=== PATIENT | female | born 1940 | race Caucasian/White ===

== ENCOUNTER 2017-01-01 18:22 | Inpatient (IN) | payer OTHER ==
--- NOTE | 2017-01-01 20:06 | EDPHY ---
H & P Stated Complaint: Fall- laceration to forehead, right shoulder pain. - Personal History Current Tetanus Diphtheria and Acellular Pertussis (TDAP): Yes Tetanus Vaccine Date: < 10 years - Medical/Surgical History Hx Asthma: Yes Hx Chronic Respiratory Disease: No Hx Diabetes: No Hx Cardiac Disease: Yes Hx Renal Disease: No Hx Cirrhosis: No Hx Alcoholism: No Hx HIV/AIDS: No Hx Splenectomy or Spleen Trauma: No Other PMH: asthma, HTN, choly, hysterectomy, bilateral cataracts repaired - Social History Smoking Status: Former smoker HPI/ROS: Chief complaint: Fall with head and arm injury History of present illness: This is a 76-year-old female brought to emergency department after sustaining a fall at her assisted living home. Patient was walking with her walker when she stepped on a crack and fell forward striking her head and then right arm against the ground. No reported loss of consciousness, she states she remembers the entire event. She complains pain in front of her head where there is a cut. However her primary concern is pain in her right shoulder and arm. She denies injury to other parts of the body. Her tetanus is up-to-date. Review of systems: A 10 point review of systems was obtained and other than described above was negative (Milton Dolan) - Physical Exam Exam: General Appearance: Alert, conversing with me Eyes: PERRLA Respiratory: Lungs clear to auscultation bilaterally Cardiac: Regular rate and rhythm. Gastrointestinal: Bowel sounds normal. Abdomen soft, nondistended, nontender. Neurological: Alert. Strength and sensation intact and symmetrical. Skin: 2 cm laceration to the central forehead. Musculoskeletal: The head is nontender, no crepitus or bony deformity. There is no tenderness along the spine, no crepitus, bony deformity or step-off. There is tenderness to the right trapezius region. The right shoulder and humerus is tender and she does not want move these regions secondary to pain. Chest wall intact to palpation. The other extremities unremarkable. (Milton Dolan) Constitutional: Initial Vital Signs Temperature (C) 36.4 C 01/01/17 18:33 Heart Rate 65 01/01/17 18:33 Respiratory Rate 20 01/01/17 18:33 Blood Pressure 136/81 H 01/01/17 18:33 O2 Sat (%) 95 01/01/17 18:33 O2 Delivery Mode Room Air Allergies/Adverse Reactions: niacin Allergy (Verified 12/01/14 17:38) zolpidem tartrate [From Ambien] Allergy (Verified 12/01/14 17:38) Home Medications: Medication Instructions Recorded ALPRAZolam [Xanax 1 MG (*)] 1 mg PO DAILY 01/01/17 DULoxetine [Cymbalta 60 MG (*)] 60 mg PO DAILY 01/01/17 Gabapentin [Neurontin 300 MG (*)] 300 mg PO HS 01/01/17 Losartan Potassium [Cozaar 25 mg 25 mg PO DAILY 01/01/17 (*)] Metoprolol Tartrate [Lopressor 100 100 mg PO DAILY 01/01/17 mg (*)] Simvastatin [Zocor] 5 mg PO DAILY 01/01/17 Medical Decision Making - Diagnostics Imaging: Discussed imaging studies w/ order desk caller Radiologist, I viewed and interpreted images myself - Diagnostics Imaging Results: Imaging Impressions Cervical Spine CT 01/01/17 18:35 Impression: 1. No acute fracture or soft tissue swelling. 2. Multilevel degenerative disk and facet arthropathy. 3. If the patient has persistent pain or neurologic deficits, consider cervical spine MRI. Findings discussed with Emergency Department physician's web press operator assistant, Milotn Dolan, at 1952 hours 01/01/2017. Face CT 01/01/17 18:35 Impression: No acute facial fracture. Findings discussed with Emergency Department physician's web press operator assistant, Milton Dolan, at 1952 hours 01/01/2017. Head CT 01/01/17 18:35 Impression: 1. Small left frontal scalp hematoma. No acute skull or facial fracture. 2. No acute intracranial injury. 3. Atrophy and moderate white matter disease. 4. Dental caries in the left alveolar ridge. Findings discussed with Emergency Department, Milton Dolan, P.A., on December at 1952. Humerus X-Ray 01/01/17 18:35 Impression: Acute minimally-displaced three-part surgical neck fracture. Procedures: Procedure: Laceration repair. Verbal consent was obtained from the patient. The 2 cm laceration on the forehead was anesthetized in the usual fashion. The wound was irrigated, draped and explored to its base with a gloved finger. There were no deep structures involved. The wound was repaired with 5 0 Prolene, 3 simple interrupted sutures. The wound repair was simple. The procedure was performed by myself. ( Milton Dolan) ED Course/Re-evaluation: Patient seen in conjunction with my secondary supervising physician Dr. Serafin Martinez. Patient presents to the emergency department after what appears to be a mechanical trip and fall. Primary injury appears to be a surgical neck fracture of the right humerus. There is a laceration to her forehead that has been repaired. By history, physical and imaging studies no evidence of trauma to other parts of the body. She is admitted to the hospitalist service, Dr. Antonio Mancia for further evaluation and care. On-call orthopedics, Dr. Shayan Coleman will consult on the patient. The plan has been discussed with the patient who voiced understanding and agreement. (Milton Dolan) Differential Diagnosis: Included but not limited to soft tissue injury, bony injury, intracranial injury , spinal cord injury (Milton Dolan) Other Provider: PHYSICIAN DOCUMENTATION: The patient was evaluated and managed by the Physician Plastics Nurse and myself. I have reviewed the chart and agree with the findings and plan of care as documented. In addition, I examined the patient myself at 2009. Physical findings as follows: Forehead laceration. Nontender in the cervical spine. Is able to move and feel all [address] findings reviewed, cervical spine cleared clinically by myself at this time. Will require admission for right humerus fracture but inability to walk. Cleared otherwise from a trauma standpoint by myself. I am the secondary supervising physician. (Serafin Martinez) - Data Points Laboratory Results: Laboratory Results 01/01/17 18:30 01/01/17 18:30 01/01/17 01/01/17 18:30 18:30 WBC 7.43 10^3/uL 10^3/uL (3.80-9.50) RBC 4.92 10^6/uL 10^6/uL (4.18-5.33) Hgb 13.6 g/dL g/dL (12.6-16.3) Hct 42.7 % % (38.0-47.0) MCV 86.8 fL fL (81.5-99.8) MCH 27.6 pg L pg (27.9-34.1) MCHC 31.9 g/dL L g/dL (32.4-36.7) RDW 14.0 % % (11.5-15.2) Plt Count 307 10^3/uL 10^3/uL (150-400) MPV 11.6 fL fL (8.7-11.7) Neut % (Auto) 60.9 % % (39.3-74.2) Lymph % (Auto) 28.1 % % (15.0-45.0) [place] % (Auto) 10.6 % % (4.5-13.0) Eos % (Auto) 0.0 % L % (0.6-7.6) Baso % (Auto) 0.1 % L % (0.3-1.7) Nucleat RBC Rel Count 0.0 % % (0.0-0.2) Absolute Neuts (auto) 4.52 10^3/uL 10^3/uL (1.70-6.50) Absolute Lymphs (auto) 2.09 10^3/uL 10^3/uL (1.00-3.00) Absolute Monos (auto) 0.79 10^3/uL 10^3/uL (0.30-0.80) Absolute Eos (auto) 0.00 10^3/uL L 10^3/uL (0.03-0.40) Absolute Basos (auto) 0.01 10^3/uL L 10^3/uL (0.02-0.10) Absolute Nucleated RBC 0.00 10^3/uL 10^3/uL (0-0.01) Immature Gran % 0.3 % % (0.0-1.1) Immature Gran # 0.02 10^3/uL 10^3/uL (0.00-0.10) Sodium 137 mEq/L mEq/L (134-144) Potassium 4.8 mEq/L mEq/L (3.5-5.2) Chloride 104 mEq/L mEq/L (97-110) Carbon Dioxide 24 mEq/l mEq/l (22-31) Anion Gap 9 mEq/L mEq/L (8-16) BUN 15 mg/dL mg/dL (7-23) Creatinine 0.9 mg/dL mg/dL (0.6-1.0) Estimated GFR > 60 Glucose 96 mg/dL mg/dL (70-100) Calcium 10.2 mg/dL mg/dL (8.5-10.4) Medications Given: Sodium Chloride (Ns) 1,000 mls @ 50 mls/hr IV CONT MARCIAL Stop: 06/30/17 21:44 Last Admin: 01/01/17 22:52 Dose: 1,000 mls Discontinued Medications Fentanyl (Sublimaze) 50 mcg IVP ONCE ONE Stop: 01/01/17 20:51 Last Admin: 01/01/17 20:52 Dose: 50 mcg Departure - Departure Disposition: [facility] Acute Clinical Impression: Head injury Qualifiers: Encounter type: initial encounter Qualified Code(s): S09.90XA - Unspecified injury of head, initial encounter Humerus fracture Qualifiers: Encounter type: initial encounter Humerus Location: surgical neck Fracture type : closed Fracture morphology: 3-part Laterality: right Qualified Code(s): S42.231A - 3-part fracture of surgical neck of right humerus, initial encounter for closed fracture Forehead laceration Qualifiers: Encounter type: initial encounter Qualified Code(s): S01.81XA - Laceration without foreign body of other part of head, initial encounter Condition: Good
[2017-01-01 20:13] LABS: % IMMATURE GRANULYOCYTES 0.3 % (0.0-1.1); ABSOLUTE IMMATURE GRANULOCYTES 0.02 10^3/uL (0.00-0.10); ADD DIFF? NO; ADD MORPH? NO; ADD SCAN? NO; ATYPICAL LYMPHOCYTE FLAG 0 (0-99); FRAGMENT RBC FLAG 0 (0-99); HEMATOCRIT 42.7 % (38.0-47.0); HEMOGLOBIN 13.6 g/dL (12.6-16.3); LEFT SHIFT FLG 0 (0-99); LIPEMIA HEMOLYSIS FLAG 80 (0-99); MEAN CELL HEMOGLOBIN 27.6 pg (27.9-34.1); MEAN CELL HEMOGLOBIN CONCENTR. 31.9 g/dL (32.4-36.7); MEAN CELL VOLUME 86.8 fL (81.5-99.8); MEAN PLATELET VOLUME 11.6 fL (8.7-11.7); PLATELET CLUMPS FLAG 0 (0-99); PLATELET COUNT 307 10^3/uL (150-400); RED BLOOD CELL COUNT 4.92 10^6/uL (4.18-5.33)
[2017-01-01 20:22] LABS: ANION GAP 9 mEq/L (8-16); CALCIUM 10.2 mg/dL (8.5-10.4); CARBON DIOXIDE 24 mEq/l (22-31); CHLORIDE 104 mEq/L (97-110); CREATININE 0.9 mg/dL (0.6-1.0); GLOMERULAR FILTRATION RATE > 60; GLUCOSE 96 mg/dL (70-100); POTASSIUM 4.8 mEq/L (3.5-5.2); SODIUM 137 mEq/L (134-144)
[2017-01-01] MEDS ORDERED: fentaNYL 100 MCG/2 ML INJ IVP ONE (20:50)
[2017-01-01] MEDS ORDERED: fentaNYL 100 MCG/2 ML INJ ONE (20:50)
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
--- NOTE | 2017-01-01 21:42 | PDGENHP ---
History and Physical History and Physical: HISTORY AND PHYSICAL CC:Right shoulder pain after fall HISTORY: The history is obtained mostly directly from the patient. We have no previous records here from her medical care. Her memory is certainly poor and there may be inaccuracies in the history as detailed below due to her memory issues This patient comes into the emergency room by ambulance after being found on the ground today. She apparently had a fall and complains of primarily right shoulder pain as well as bleeding from her nose and a laceration to the forehead. She tells me that she went out the back entrance possibly of the place she lives but she does not recall where. She uses a walker and says that she was going downhill on a sidewalk when her walker started of go away from her too quickly and she could keep up and fell forward onto her face and shoulder. She did not lose consciousness. There was no lightheadedness, palpitations, chest pain, shortness of breath, fevers, nausea and she has not felt ill at all prior to this fall today. She has not fallen for quite some time she believes. She has been using a walker for about 6 months. She has no history of stroke. X-rays of her right shoulder have shown a fracture which will probably need surgical repair. ROS: A comprehensive 10 system review revealed no other significant findings PAST MEDICAL HISTORY: Hypertension hypercholesterolemia asthma hysterectomy cataract cholecystectomy this may be an incomplete medical history due to her memory loss FAMILY MEDICAL HISTORY: She does not recall any specifics when asked SOCIAL HISTORY: she apparently lives at a local [facility]-way community, possibly [facility] She reports having a son who lives locally and runs a business here She does not use tobacco or alcohol MEDICATIONS: The patients list has been reconciled by our clinical pharmacist in the EMR. I have reviewed the list and ordered appropriate medicines. PHYSICAL EXAMINATION: Vital Signs: stable without fever Staff Auditor: sinus rhythm Examination: General: alert, oriented, poor memory but otherwise good mentation, relaxed Skin: warm, dry, good color, no rash HEENT: there is a 1.5 cm U shaped laceration on her central forehead, there is a mild ecchymosis of left eyelids, there is evidence of prior nose bleed without examination evidence of fracture, no evidence of dental or jaw injury or cranial injury Neck: no mass or jvd Resps: relaxed Lungs: clear breath sounds Heart: regular, no murmur Abdomen: soft, nondistended, nontender, +BS, no mass Upper Extremities: the right shoulder is mildly swollen and there is exquisite pain with any minimal attempts at passive or active movement Lower Extremities: no edema, warm No Bleeding or bruising Neurologic: obvious memory deficit, normal speech/language, normal pediatric geneticist, no focal weakness IV site: looks normal LABORATORY DATA: unremarkable CBC and Chem panel RADIOLOGY STUDIES: x-rays of right shoulder done in the ER, my interpretation: Comminuted and significantly displaced fracture at the right humeral head CT scans of the head face and cervical spine have also been done and show no evidence of fractures or other skeletal abnormality, and no intracranial injury ASSESSMENT: -Atraumatic right shoulder fracture which appears like it will require surgery due to significant displacement and comminuted fracture -Gait instability with fall -Poor memory appears most likely chronic and due to her dementia but I am unable to confirm this read at the moment, it could also be possible she might have a concussion -preoperative risk assessment: May proceed with surgery if indicated per Orthopedics. At this time there are no medical conditions identified requiring specific further assessment or medical management prior to proceeding with surgery. PLANS: - Inpatient admission as patient will not be able to safely be on her feet and discharged within 48 hours -Orthopedics consult and will likely need surgery for her shoulder -DVT prophylaxis -Physical occupational therapy -Speech language consult for possible concussion verses dementia and will need to try and confirm with her primary care physician or family whether she actually has prior dementia or not. If it is determined she has possible concussion the customer relations coordinator service should be notified to they can follow- up. All - would discontinue her benzodiazepine at this time due to her increased fall risk with that medication I have reviewed the patient's case in detail with Milton Dolan of the ER
[2017-01-01] MEDS ORDERED: ONDANSETRON 4 MG/2 ML VIAL IVP PRN (21:44)
[2017-01-01] MEDS: NS 1,000 ML IV SCH (22:52)
[2017-01-01] MEDS: oxyCODONE IR 5 MG TAB PO PRN (23:20)
[2017-01-02 04:58] LABS: % IMMATURE GRANULYOCYTES 0.3 % (0.0-1.1); ABSOLUTE IMMATURE GRANULOCYTES 0.03 10^3/uL (0.00-0.10); ADD DIFF? NO; ADD MORPH? NO; ADD SCAN? NO; ATYPICAL LYMPHOCYTE FLAG 0 (0-99); FRAGMENT RBC FLAG 0 (0-99); HEMATOCRIT 39.8 % (38.0-47.0); HEMOGLOBIN 12.6 g/dL (12.6-16.3); LEFT SHIFT FLG 0 (0-99); LIPEMIA HEMOLYSIS FLAG 80 (0-99); MEAN CELL HEMOGLOBIN 27.3 pg (27.9-34.1); MEAN CELL HEMOGLOBIN CONCENTR. 31.7 g/dL (32.4-36.7); MEAN CELL VOLUME 86.1 fL (81.5-99.8); MEAN PLATELET VOLUME 11.5 fL (8.7-11.7); PLATELET CLUMPS FLAG 0 (0-99); PLATELET COUNT 255 10^3/uL (150-400); RED BLOOD CELL COUNT 4.62 10^6/uL (4.18-5.33); RED CELL DISTRIBUTION WIDTH 13.9 % (11.5-15.2)
[2017-01-02] MEDS: oxyCODONE IR 5 MG TAB PO PRN (05:12)
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
[2017-01-02] MEDS: METOPROLOL TARTRATE 100 MG TAB PO SCH (09:35)
[2017-01-02] MEDS: LOSARTAN POTASSIUM 25 MG TAB PO SCH (09:35)
[2017-01-02] MEDS: PRAVASTATIN SODIUM 10 MG TAB PO SCH (09:35)
[2017-01-02] MEDS: DULoxetine 60 MG CAP PO SCH (09:35)
[2017-01-02] MEDS: ACETAMINOPHEN 325 MG TAB PO PRN (09:36)
[2017-01-02] MEDS ORDERED: ceFAZolin 2 GM/DEXTROSE 100 ML IV ONE (09:46)
[2017-01-02] MEDS: ENOXAPARIN 40 MG/0.4 ML SYR SC SCH (10:44)
--- NOTE | 2017-01-02 12:23 | SOAPPROG ---
ARPAN Progress Note Assessment/Plan: Assessment: R prox humerus fx Plan: ORIF for ORIF 01/02/17 12:22 Subjective: pain in shoulder confused Objective: Vital Signs Temp Pulse Resp BP Pulse Ox 36.4 C 79 16 181/80 H 96 01/02/17 08:00 01/02/17 09:35 01/02/17 08:00 01/02/17 09:35 01/02/17 08:00 Laboratory Results 01/02/17 04:27 01/01/17 01/02/17 01/03/17 05:59 05:59 05:59 Intake Total 160 Output Total 100 Balance 60 right shoulder swelling ICD10 Worksheet Patient Problems: Problems Problem Status Onset Forehead laceration Acute Head injury Acute Humerus fracture Acute
--- NOTE | 2017-01-02 14:38 | ASMTCMCOM ---
CM Note CM Note Notes: Pt having surgery today for R arm fracture w Dr. Coleman; PT/OT to eval after. Pt has son who lives locally. VM left for Maria A Grissom [phone] at [facility]. CM to follow. Date Signed: 01/02/2017 02:37 PM Electronically Signed By:DAMARIS Hugo
--- NOTE | 2017-01-02 15:17 | HOSPPROG ---
Hospitalist Progress Note Assessment/Plan: 76 yo F w mechanical fall, humerus fx humerus fx: to or today preop eval: urgent surgery continue bb no active cardiac consitions pain: add scheduled tylenol facial lac: stiches out 01/08 proph: lmwh when postop dispo: will need snf Subjective: alert. moderately confused. case d/w dr baca- plan for operative management of L humeraal fx Objective: Vital Signs Temp Pulse Resp BP Pulse Ox 36.4 C 79 16 181/80 H 96 01/02/17 08:00 01/02/17 09:35 01/02/17 08:00 01/02/17 09:35 01/02/17 08:00 Laboratory Results 01/02/17 04:27 01/01/17 01/02/17 01/03/17 05:59 05:59 05:59 Intake Total 160 Output Total 100 Balance 60 - Physical Exam Constitutional: no apparent distress, appears nourished Eyes: PERRL, anicteric sclera, other (R eye w eccymosis) Ears, Nose, Mouth, Throat: moist mucous membranes, hearing normal Cardiovascular: regular rate and rhythym, no murmur, rub, or gallop Respiratory: no respiratory distress Gastrointestinal: normoactive bowel sounds, soft, non-tender abdomen Genitourinary: No gonzalez in urethra Skin: warm, normal color Musculoskeletal: full muscle strength Neurologic: AAOx3, sensation intact bilaterally ICD10 Worksheet Patient Problems: Problems Problem Status Onset Forehead laceration Acute Head injury Acute Humerus fracture Acute
[2017-01-02] MEDS ORDERED: BUPIVACAINE 0.25% 30 ML SDV ONE ×2 (16:31→17:17)
[2017-01-02] MEDS ORDERED: CEFAZOLIN 2 GM/DEXTROSE/100 ML BAG IV ONE (16:36)
[2017-01-02] MEDS ORDERED: fentaNYL 100 MCG/2 ML INJ ONE ×2 (16:54→17:53)
--- NOTE | 2017-01-02 16:54 | PDANEPAE ---
ANE History of Present Illness s/p fall with prox humerus fracture. Some confusion since admission. oriented to person and year, recalls her fall but details a little unclear. Negative head CT scan. ANE Past Medical History Past Medical History: asthma, anxiety, HLD, HTN, - Cardiovascular History Hx Hypertension: Yes Hx Arrhythmias: No Hx Chest Pain: No Hx Coronary Artery / Peripheral Vascular Disease: No Hx CHF / Valvular Disease: No Hx Palpitations: No - Pulmonary History Hx Asthma/Reactive Airway Disease: Yes Hx Recent Upper Respiratory Infection: No Hx Oxygen in Use at Home: No Hx Sleep Apnea: No - Endocrine History Hx Diabetes: No Hypothyroid: No Hyperthyroid: No Obesity: no - Renal History Hx Renal Disorders: No - Liver History Hx Hepatic Disorders: No - Neurological & Psychiatric Hx Hx Neurological and Psychiatric Disorders: Yes Neurological / Psychiatric History Comment: history of anxiety - Cancer History Hx Cancer: No ANE Review of Systems Review of systems is: negative Review of Systems: - Exercise capacity Exercise capacity: <4 METS ANE Patient History - Allergies Allergies/Adverse Reactions: niacin Allergy (Verified 12/01/14 17:38) zolpidem tartrate [From Ambien] Allergy (Verified 12/01/14 17:38) - Home Medications Home medications: home medication list seen and reviewed Home Medications: ALPRAZolam [Xanax 1 MG (*)] 1 mg PO DAILY 01/01/17 [Last Taken Unknown] DULoxetine [Cymbalta 60 MG (*)] 60 mg PO DAILY 01/01/17 [Last Taken Unknown] Gabapentin [Neurontin 300 MG (*)] 300 mg PO HS 01/01/17 [Last Taken Unknown] Losartan Potassium [Cozaar 25 mg (*)] 25 mg PO DAILY 01/01/17 [Last Taken Unknown] Metoprolol Tartrate [Lopressor 100 mg (*)] 100 mg PO DAILY 01/01/17 [Last Taken Unknown] Simvastatin [Zocor] 5 mg PO DAILY 01/01/17 [Last Taken Unknown] - NPO status NPO Status: no food or drink >8 hours - Anes Hx Anes Hx: no prior problems - Smoking Hx Smoking Status: Former smoker - Alcohol Use Alcohol Use: None - Family Anes Hx Family Anes Hx: none ANE Labs/Vital Signs - Labs Result Diagrams: 01/02/17 04:27 01/01/17 18:30 - Vital Signs Blood Pressure: 146/73 Heart Rate: 79 Respiratory Rate: 16 O2 Sat (%): 96 Height: 152.4 cm Weight: 68.039 kg ANE Physical Exam - Airway Neck exam: FROM Mallampati Score: Class 2 - Pulmonary Pulmonary: no respiratory distress - Cardiovascular Cardiovascular: regular rate and rhythym - ASA Status ASA Status: III ANE Anesthesia Plan Anesthesia Plan: GA w LMA (consent via son. Discussed risks and benefits, including risk of post op delirium given patient currently with some confusion. )
[2017-01-02] MEDS ORDERED: PROPOFOL 200 MG/20 ML VIAL ONE (16:55)
[2017-01-02] MEDS ORDERED: NALOXONE HCL 0.4 MG/ML INJ IVP PRN (18:00)
[2017-01-02] MEDS ORDERED: fentaNYL 100 MCG/2 ML INJ IVP PRN (18:00)
[2017-01-02] MEDS ORDERED: ALBUTEROL 3 ML DEYVIAL IH PRN (18:00)
[2017-01-02] MEDS ORDERED: HYDROmorphONE/DILAUDID 1 MG/ML INJ IVP PRN (18:00)
[2017-01-02] MEDS ORDERED: ONDANSETRON 4 MG/2 ML VIAL IVP PRN (18:00)
[2017-01-02] MEDS ORDERED: LABETALOL HCL 50 MG/10 ML SYR IVP PRN (18:00)
--- NOTE | 2017-01-02 18:35 | POSTOPPROG ---
Post Op Note Date of Operation: 01/02/17 Surgeon: Shayan Coleman [employer]lower [employer] Laborer/Designer: Syd Anesthesia: GET(General Endotracheal) Pre-op Diagnosis: R prox humerus fx Post-op Diagnosis: R prox humerus fx Indication: same Procedure: orif R prox humerus fx Inf/Abcess present in the surg proc area at time of surgery?: No EBL: 50-100
--- NOTE | 2017-01-02 19:02 | POSTANESTH ---
Post Anesthetic Evaluation Cardiovascular Status: Normal, Stable Respiratory Status: Normal, Stable Level of Consciousness/Mental Status: Mildly Sleepy, Arousable, Moderately Sleepy Pain Control: Adequate, Prn Tx Ordered Nausea/Vomiting Control: Adequate, Prn Tx Ordered Complications Possibly Related to Anesthesia: None Noted
[2017-01-02] MEDS: GABAPENTIN 300 MG CAP PO SCH (21:16)
[2017-01-03] MEDS: NS 1,000 ML IV SCH ×2 (00:59→20:29)
--- NOTE | 2017-01-03 01:18 | GOP ---
[f rep st] OPERATIVE REPORT DATE OF OPERATION: 01/02/2017 SURGEON: Shayan Coleman MD [employer] TECHNICIAN: Vincent Velarde SA. PREOPERATIVE DIAGNOSIS: Right proximal humerus fracture, 3-part. POSTOPERATIVE DIAGNOSIS: Right proximal humerus fracture, 3-part. PROCEDURE PERFORMED: Open reduction and internal fixation, right proximal humerus fracture. FINDINGS: SPECIMENS: None. ESTIMATED BLOOD LOSS: 100 mL. INDICATIONS: This is a 76-year-old female, who fell and sustained a displaced 3-part humerus fractur e. I had discussed open reduction and internal fixation given the displacement of the tuberosity fra cture, the impaction, and the fact that she is dependent arms for weightbearing with a walker. She a nd her son elected to proceed. Her son gave informed consent. We discussed risks of nonunion, malun ion, screws in the joint, need for hardware removal, nerve injury, continued pain, failure of fixatio n, blood clot, and she confusion postoperatively. She elected to proceed. Informed consent was obta ined. All their questions were answered. She was marked preoperatively. DESCRIPTION OF PROCEDURE: She was taken to the operative suite. She was sterilely prepped and drape d in normal fashion, after being positioned. Time-out was performed verifying the patient, side, sit e, and was agreed upon by all members of the team. Incision was marked. Epinephrine and Marcaine we re injected. Skin incision was made, dissected, cauterizing tissue vessels till I found the cephalic vein. I used this interval to find the deltopectoral interval and developed this bluntly. It was t aken down to the fascia in the humerus and I exposed this. I was able to debride this. I was able t o use traction manipulation to reduce the fragments back into place. Then I put 2 tag sutures with # 2 FiberWire on the tuberosity fragment in the cuff and I was able to reduce this then back in place. I placed a plate over this the same which was in place. I placed a cortical screw distally in the p late and then provisional fixation proximally. Took x-rays and felt this was in good position. Good acceptable reduction. It was marginally impacted given her fracture pattern. I then placed locking screws in the construct to hold this. This moved well as a unit. I took last fluoroscopic images t o show that no screws were in the joint. She had good motion in planes. The hardware and the fractu res were stable. The tag sutures of the #2 FiberWire in the cuff were tied to the plate. It was valentin sed with 0 Vicryl, 2-0 Vicryl, 3-0 Quill, and Dermabond. She was taken to PACU in stable condition. IMPLANTS: Synthes proximal humeral plate with locking and nonlocking screws. COMPLICATIONS: None. DRAINS: None. CONDITION: Stable. /[id number]/MODL
[2017-01-03] MEDS: oxyCODONE IR 5 MG TAB PO PRN (04:05)
--- NOTE | 2017-01-03 07:36 | SOAPPROG ---
SOAP Progress Note Assessment/Plan: Assessment: R prox humerus fx Plan: ORIF R proximal fx 01/02 ROM as tolerated R shoulders 5 lbs wt limit rUE may shower, leave dressings in place may discharge when medically able f/u with me in 10 days 01/03/17 07:35 Subjective: pain in shoulder Objective: Vital Signs Temp Pulse Resp BP Pulse Ox 37.1 C 82 16 176/64 H 93 01/03/17 03:58 01/03/17 03:58 01/03/17 03:58 01/03/17 03:58 01/03/17 03:58 Laboratory Results 01/02/17 04:27 01/02/17 01/03/17 01/04/17 05:59 05:59 05:59 Intake Total 160 1250 Output Total 100 500 Balance 60 750 dressing cdi ICD10 Worksheet Patient Problems: Problems Problem Status Onset Forehead laceration Acute Head injury Acute Humerus fracture Acute
[2017-01-03] MEDS: LOSARTAN POTASSIUM 25 MG TAB PO SCH (09:34)
[2017-01-03] MEDS: DULoxetine 60 MG CAP PO SCH (09:34)
[2017-01-03] MEDS: METOPROLOL TARTRATE 100 MG TAB PO SCH (09:34)
[2017-01-03] MEDS: PRAVASTATIN SODIUM 10 MG TAB PO SCH (09:46)
[2017-01-03] MEDS: ENOXAPARIN 40 MG/0.4 ML SYR SC SCH (09:46)
--- NOTE | 2017-01-03 13:04 | HOSPPROG ---
Hospitalist Progress Note Assessment/Plan: -Atraumatic right shoulder fracture which appears like it will require surgery due to significant displacement and comminuted fracture -Gait instability with fall -Poor memory appears most likely chronic and due to her dementia but I am unable to confirm this read at the moment, it could also be possible she might have a concussion -preoperative risk assessment: May proceed with surgery if indicated per Orthopedics. At this time there are no medical conditions identified requiring specific further assessment or medical management prior to proceeding with surgery. Objective: Vital Signs Temp Pulse Resp BP Pulse Ox 36.8 C 66 12 180/77 H 95 01/03/17 12:00 01/03/17 12:00 01/03/17 12:00 01/03/17 12:00 01/03/17 12:00 Laboratory Results 01/02/17 04:27 01/02/17 01/03/17 01/04/17 06:59 06:59 06:59 Intake Total 160 1250 Output Total 100 500 Balance 60 750 ICD10 Worksheet Patient Problems: Problems Problem Status Onset Forehead laceration Acute Head injury Acute Humerus fracture Acute
--- NOTE | 2017-01-03 13:10 | HOSPPROG ---
Hospitalist Progress Note Assessment/Plan: DIAGNOSES: -Atraumatic right shoulder fracture withsignificant displacement and comminuted fracture -Gait instability with fall -Acute encephalopathy, multifactorial, is now present -Poor memory noted at the time of admission appears most likely chronic and due to her dementia but I am unable to confirm this at the moment, it could also be possible she might have a concussion PLANS: -physical occupational therapies, wound care -Avoid medications with central nervous system side effects as able -Fall risk precautions -DVT prophylaxis when she will allow, so far she has been not allowing that medication -Will check TSH and B12 level due to memory loss seen at admission; will recheck electrolytes to make sure those are in good order as well -As I could not rule out the possibility of a concussion will review with her cognitive therapist here and will ask the trauma coordinators to review her case as well: She will clearly need significant ongoing cognitive therapies - she will need care home facility rehabilitation at the time of discharge SUBJECTIVE: " I have steroids in my mouth" the patient is fairly confused and not really otherwise able to discuss her symptoms clearly with me OBJECTIVE Vitals reviewed: Some hypertension otherwise stable without fever Exam: alert fairly sleepy but arousable, when I do arouse her today she is quite disoriented more so than when she was in the ER. Some delusional thoughts. No focal weakness skin warm dry color ok resps not labored lungs clear BSs heart regular abd soft nondistended nontender, bowel sounds present limbs warm, no edema iv site ok Objective: Vital Signs Temp Pulse Resp BP Pulse Ox 36.8 C 66 12 180/77 H 95 01/03/17 12:00 01/03/17 12:00 01/03/17 12:00 01/03/17 12:00 01/03/17 12:00 Laboratory Results 01/02/17 04:27 01/02/17 01/03/17 01/04/17 06:59 06:59 06:59 Intake Total 160 1250 Output Total 100 500 Balance 60 750 ICD10 Worksheet Patient Problems: Problems Problem Status Onset Forehead laceration Acute Head injury Acute Humerus fracture Acute
[2017-01-03] MEDS ORDERED: hydrALAZINE 20 MG/ML VIAL IVP ONE (15:45)
[2017-01-03] MEDS: SIMVASTATIN 5 MG PO SCH ×2 (16:11→16:16)
[2017-01-03] MEDS: GABAPENTIN 300 MG CAP PO SCH (21:46)
[2017-01-04 07:00] LABS: ANION GAP 9 mEq/L (8-16); CALCIUM 9.4 mg/dL (8.5-10.4); CARBON DIOXIDE 25 mEq/l (22-31); CHLORIDE 98 mEq/L (97-110); CREATININE 0.7 mg/dL (0.6-1.0); GLOMERULAR FILTRATION RATE > 60; GLUCOSE 109 mg/dL (70-100); POTASSIUM 3.7 mEq/L (3.5-5.2); SODIUM 132 mEq/L (134-144)
[2017-01-04 07:07] LABS: INR 1.11 (0.83-1.16); PROTIME(PATIENT) 14.2 SEC (12.0-15.0)
--- NOTE | 2017-01-04 08:21 | SOAPPROG ---
SOAP Progress Note Assessment/Plan: Assessment: R prox humerus fx Plan: ORIF R proximal fx 01/02 ROM as tolerated R shoulders 5 lbs wt limit rUE may shower, leave dressings in place may discharge when medically able Mechanical DVT prophalaxsis f/u with me in 10 days Call [phone] with questions 01/03/17 07:35 01/04/17 08:20 Subjective: confused Objective: Vital Signs Temp Pulse Resp BP Pulse Ox 37.2 C 86 12 138/72 H 94 01/04/17 07:45 01/04/17 07:45 01/04/17 07:45 01/04/17 07:45 01/04/17 07:45 Laboratory Results 01/02/17 04:27 01/04/17 06:05 01/03/17 01/04/17 01/05/17 05:59 05:59 05:59 Intake Total 1250 1354 Output Total 500 Balance 750 1354 PT 14.2 SEC (12.0-15.0) 01/04/17 06:05 INR 1.11 (0.83-1.16) 01/04/17 06:05 dressing dry ICD10 Worksheet Patient Problems: Problems Problem Status Onset Forehead laceration Acute Head injury Acute Humerus fracture Acute
[2017-01-04] MEDS: LOSARTAN POTASSIUM 25 MG TAB PO SCH (08:34)
[2017-01-04] MEDS: DULoxetine 60 MG CAP PO SCH (08:34)
[2017-01-04] MEDS: METOPROLOL TARTRATE 100 MG TAB PO SCH (08:34)
[2017-01-04] MEDS: ACETAMINOPHEN 325 MG TAB PO PRN ×2 (08:34→18:23)
[2017-01-04] MEDS: SIMVASTATIN 5 MG PO SCH (08:35)
[2017-01-04] MEDS: ENOXAPARIN 40 MG/0.4 ML SYR SC SCH (08:35)
--- NOTE | 2017-01-04 13:57 | HOSPPROG ---
Hospitalist Progress Note Assessment/Plan: Patient is a 76-year-old female who was brought to the emergency room by ambulance after being found on the ground. She had a fall and had mainly right shoulder pain as well as had had a bleeding nose and laceration to her forehead. She uses a walker and was going downhill in a sidewalk when her walker got away from her. She did not lose consciousness. Today is my 1st encounter with the patient. Chart reviewed. * right shoulder fracture with displacement, comminuted fracture Status post ORIF * gait instability with fall * acute encephalopathy TSH is 0.954, vitamin B12 level stable Patient was evaluated by speech therapy who noted she has severe cognitive deficits she is oriented to herself *Possible concussion CT shows nothing acute * head laceration small area on forehead area *dvt prophylaxis: LMWH *Plan: will need a SNF Subjective: Tomasa Harris has c/o some right arm pain. Objective: Vital Signs Temp Pulse Resp BP Pulse Ox 37.2 C 67 16 144/60 H 96 01/04/17 11:35 01/04/17 11:35 01/04/17 11:35 01/04/17 11:35 01/04/17 11:35 Laboratory Results 01/02/17 04:27 01/04/17 06:05 01/03/17 01/04/17 01/05/17 05:59 05:59 05:59 Intake Total 1250 1354 Output Total 500 Balance 750 1354 PT 14.2 SEC (12.0-15.0) 01/04/17 06:05 INR 1.11 (0.83-1.16) 01/04/17 06:05 - Physical Exam Constitutional: chronically ill appearing, uncomfortable Eyes: PERRL, other (right eye with ecchymosis around it) Ears, Nose, Mouth, Throat: hearing normal Cardiovascular: regular rate and rhythym Respiratory: no respiratory distress Gastrointestinal: normoactive bowel sounds Skin: warm Musculoskeletal: generalized weakness (right arm in sling/ good cms) Neurologic: other (alert and oriented only to herself) Psychiatric: poor insight, poor memory ICD10 Worksheet Patient Problems: Problems Problem Status Onset Forehead laceration Acute Head injury Acute Humerus fracture Acute
[2017-01-04] MEDS: NS 1,000 ML IV SCH (18:17)
[2017-01-04] MEDS: GABAPENTIN 300 MG CAP PO SCH (20:34)
[2017-01-05 06:53] LABS: ANION GAP 9 mEq/L (8-16); CALCIUM 9.1 mg/dL (8.5-10.4); CARBON DIOXIDE 24 mEq/l (22-31); CHLORIDE 106 mEq/L (97-110); CREATININE 0.6 mg/dL (0.6-1.0); GLOMERULAR FILTRATION RATE > 60; GLUCOSE 110 mg/dL (70-100); POTASSIUM 3.5 mEq/L (3.5-5.2); SODIUM 139 mEq/L (134-144)
[2017-01-05] MEDS: ACETAMINOPHEN 325 MG TAB PO PRN ×3 (08:33→21:43)
[2017-01-05] MEDS: METOPROLOL TARTRATE 100 MG TAB PO SCH (08:34)
[2017-01-05] MEDS: DULoxetine 60 MG CAP PO SCH (08:34)
[2017-01-05] MEDS: ENOXAPARIN 40 MG/0.4 ML SYR SC SCH (08:35)
[2017-01-05] MEDS: LOSARTAN POTASSIUM 25 MG TAB PO SCH (08:35)
[2017-01-05] MEDS: SIMVASTATIN 5 MG PO SCH (08:37)
--- NOTE | 2017-01-05 14:44 | HOSPPROG ---
Hospitalist Progress Note Assessment/Plan: Patient is a 76-year-old female who was brought to the emergency room by ambulance after being found on the ground. She had a fall and had mainly right shoulder pain as well as had had a bleeding nose and laceration to her forehead. She uses a walker and was going downhill in a sidewalk when her walker got away from her. She did not lose consciousness. * right shoulder fracture with displacement, comminuted fracture Status post ORIF * gait instability with fall * acute encephalopathy TSH is 0.954, vitamin B12 level stable Patient was evaluated by speech therapy who noted she has severe cognitive deficits she is oriented to herself, place and why she is here, but gets confused easily *Possible concussion CT shows nothing acute I suspect many of her confusion if from this * head laceration small area on forehead area *dvt prophylaxis: LMWH *Plan: will need a SNF/ left a message for her son, Marcos ) to update her on plan of care Subjective: Tomasa Woody is not c/o any pain. Objective: Vital Signs Temp Pulse Resp BP Pulse Ox 37.3 C 111 H 16 160/80 H 90 L 01/05/17 10:14 01/05/17 09:31 01/05/17 09:31 01/05/17 09:31 01/05/17 09:31 Laboratory Results 01/02/17 04:27 01/05/17 06:09 01/04/17 01/05/17 01/06/17 05:59 05:59 05:59 Intake Total 1953 Balance 1953 PT 14.2 SEC (12.0-15.0) 01/04/17 06:05 INR 1.11 (0.83-1.16) 01/04/17 06:05 - Physical Exam Constitutional: not in pain, chronically ill appearing Eyes: PERRL, other (left eye area w ecchymosis/ yellowing going down into cheek area and on the forehead area) Ears, Nose, Mouth, Throat: hearing normal Cardiovascular: regular rate and rhythym Respiratory: no respiratory distress Skin: warm, other (suture on forehead area) Neurologic: other (alert and oriented to herself, place and why she's here, but then thinks she can walk to her home) Psychiatric: interacting appropriately, thought process linear (varies), poor memory ICD10 Worksheet Patient Problems: Problems Problem Status Onset Forehead laceration Acute Head injury Acute Humerus fracture Acute
--- NOTE | 2017-01-05 16:06 | ASMTCMCOM ---
CM Note CM Note Notes: Spoke to pt son Marcos [phone], informed him pt accepted at [facility] and [facility], he is not ready to select SNF yet. Reps from each facility called him to discuss ins coverage. Pt likely d/c tomorrow. Date Signed: 01/05/2017 04:05 PM Electronically Signed By:DAMARIS Hugo
[2017-01-05] MEDS: GABAPENTIN 300 MG CAP PO SCH (21:43)
[2017-01-05 23:36] VITALS: RESP 16
[2017-01-06 05:54] LABS: ANION GAP 10 mEq/L (8-16); CALCIUM 9.5 mg/dL (8.5-10.4); CARBON DIOXIDE 22 mEq/l (22-31); CHLORIDE 105 mEq/L (97-110); CREATININE 0.6 mg/dL (0.6-1.0); GLOMERULAR FILTRATION RATE > 60; GLUCOSE 102 mg/dL (70-100); POTASSIUM 3.4 mEq/L (3.5-5.2); SODIUM 137 mEq/L (134-144)
[2017-01-06 08:34] VITALS: TEMP 98.8; O2SAT 93
[2017-01-06] MEDS ORDERED: PROTOCOL POTASSIUM 1 DOSE MISC PRN (09:46)
--- NOTE | 2017-01-06 09:52 | HOSPPROG ---
Hospitalist Progress Note Assessment/Plan: Patient is a 76-year-old female who was brought to the emergency room by ambulance after being found on the ground. She had a fall and had mainly right shoulder pain as well as had had a bleeding nose and laceration to her forehead. She uses a walker and was going downhill in a sidewalk when her walker got away from her. She did not lose consciousness. * right shoulder fracture with displacement, comminuted fracture Status post ORIF * gait instability with fall * acute encephalopathy/delirium TSH is 0.954, vitamin B12 level stable Patient was evaluated by speech therapy who noted she has severe cognitive deficits she is oriented to herself, place and why she is here, but gets confused easily *Possible concussion CT shows nothing acute I suspect many of her confusion if from this * head laceration small area on forehead area *dvt prophylaxis: LMWH *Plan: will need a SNF/spoke with Marcos ) to update her on plan of care Subjective: Tomasa Harris is upset about not getting breakfast this morning. Objective: Vital Signs Temp Pulse Resp BP Pulse Ox 37.1 C 91 16 160/80 H 93 01/06/17 08:27 01/06/17 08:27 01/06/17 08:27 01/06/17 08:27 01/06/17 08:27 Laboratory Results 01/02/17 04:27 01/06/17 04:38 01/05/17 01/06/17 01/07/17 05:59 05:59 05:59 Intake Total 1953 350 Balance 1953 350 PT 14.2 SEC (12.0-15.0) 01/04/17 06:05 INR 1.11 (0.83-1.16) 01/04/17 06:05 - Physical Exam Constitutional: no apparent distress, not in pain Eyes: PERRL Ears, Nose, Mouth, Throat: hearing normal Respiratory: no respiratory distress Skin: warm, other (ecchymosis around left eye improving) Neurologic: other (alert and oriented to herself and knows she fell, confused as to where she is) Psychiatric: poor insight, poor judgement, poor memory ICD10 Worksheet Patient Problems: Problems Problem Status Onset Head injury Acute Humerus fracture Acute Forehead laceration Acute
[2017-01-06] MEDS ORDERED: POTASSIUM CL 10 MEQ TAB PO ONE (09:56)
--- NOTE | 2017-01-06 10:08 | PDIAF ---
- Diagnosis Diagnosis: r proximal humerus fx s/p ORIF, acute encephalopathy, poss concussion Code Status: Full Code - Medication Management Discharge Medications: Medications to Continue on Transfer DULoxetine [Cymbalta 60 MG (*)] 60 mg PO DAILY 01/01/17 [Last Taken Unknown] Gabapentin [Neurontin 300 MG (*)] 300 mg PO HS 01/01/17 [Last Taken Unknown] Losartan Potassium [Cozaar 25 mg (*)] 25 mg PO DAILY 01/01/17 [Last Taken Unknown] Metoprolol Tartrate [Lopressor 100 mg (*)] 100 mg PO DAILY 01/01/17 [Last Taken Unknown] Simvastatin [Zocor] 5 mg PO DAILY 01/01/17 [Last Taken Unknown] Acetaminophen [Tylenol 325mg (*)] 650 mg PO Q4HRS PRN tab 01/06/17 [Last Taken Unknown] Potassium Cl [Klor-Con 10 meq (RX)] 10 - 40 meq PO ONCE tab 01/06/17 [Last Taken Unknown] Discharge Medications: Refer to the Discharge Home Medication list for PRN reason. - Orders Services needed: Physical Therapy, Occupational Therapy, Speech Language Pathologist Diet Recommendation: no restrictions on diet Diet Texture: Regular Texture Diet Activity/Weight Bearing Restrictions: ROM as tolerated to right shoulder, 5 lb weight limit to RUE, my shower, leave dressing in place. F/U with Dr Coleman in 10 days. Additional: Patient hit her head prior to this admission, concern for a possible concussion. Allow for periods of rest. Also, has delerium, Keep curtains open during the day, go to meals with other residents. - Follow Up Care Current Providers and Referrals: Annalise Escamilla MD [Primary Care Provider] - As per Instructions Shayan Coleman MD [Medical Doctor] - follow up in 10 days (followup in 10 days in office. call for apt)
--- NOTE | 2017-01-06 10:50 | GDS ---
[f rep st] DISCHARGE SUMMARY DISCHARGE DIAGNOSES: 1. Right shoulder fracture with displacement, status post open reduction and internal fixation. 2. Gait instability with fall. 3. Acute encephalopathy with associated delirium. 4. Possible concussion. 5. Head laceration. CONSULTATIONS: Dr. Shayan Coleman BRIEF HISTORY: The patient is a 76-year-old woman, who presented to the emergency room after being found on the ground. She had fallen and complains of mainly right shoulder pain, as well as bleeding from her nose and a laceration to her forehead. She went out her back entrance where she lives, but did not recall where. She uses a walker and was going downhill on the sidewalk , when her walker gave way. During her stay, she had surgical repair of her right shoulder. She developed significant confusion during her stay. I suspect this is mostly related to being in the hospital, and hitting her head. Also, she received anesthesia. I have spoken with her son, if her delirium does not clear recommending that she see a neurologist in the outpatient setting for followup care. HOSPITAL COURSE: 1. Right shoulder fracture with displacement: She is status post ORIF, she is doing quite well. She has a 5 pound weight limit to that right upper extremity. She can do passive range of motion. Reviewed with Dr Coleman and no DVT prophylaxis is indicated. 2. Gait instability: She is requiring 2 assist to get in and out of bed. She will go to rehabilitation to strengthen. 3. Acute encephalopathy with associated delirium: TSH was checked, which is 0.954. Vitamin B12 was stable. RPR is negative. She was evaluated by speech therapy, who noted she had severe cognitive deficits. She is intermittent with her delirium, suspect there are multiple components involved with this. If she does not improve, she needs to follow up with a neurologist. 4. Possible concussion: CT showed nothing acute. 5. Head laceration: She has a small area on her forehead area. DISCHARGE CONDITION: Stable. Blood pressure is 160/80, heart rate is 91, respiratory rate 16, O2 saturations on room air 93%, temperature is 37.1 Celsius. MEDICATIONS AT DISCHARGE: Please see the EMR. DISCHARGE INSTRUCTIONS: 1. Right upper extremity range of motion as tolerated. 2. 5 pound weight limit. 3. Keep dressings on. 4. She may shower. 5. If she does not improve with her delirium, to follow up with a neurologist. Greater than 30 minutes discharging and coordinating care, and updating her son on the plan of care. /[id number]/MODL JIM
[2017-01-06] MEDS: LOSARTAN POTASSIUM 25 MG TAB PO SCH (11:16)
[2017-01-06] MEDS: METOPROLOL TARTRATE 100 MG TAB PO SCH (11:16)
[2017-01-06] MEDS: DULoxetine 60 MG CAP PO SCH (11:16)
[2017-01-06] MEDS: SIMVASTATIN 5 MG PO SCH (11:18)
[2017-01-06 11:20] VITALS: BP 158/76; PULSE 116
[2017-01-06] MEDS: ENOXAPARIN 40 MG/0.4 ML SYR SC SCH (11:20)
--- NOTE | 2017-01-08 14:09 | ASDISCHSUM ---
Discharge Information Plan Status:SNF Medically Cleared to Leave:01/06/2017 Discharge Date:01/06/2017 12:50 PM CM D/C Disposition:Long Term Facility ADT D/C Disposition:Long Term Facility Projected Discharge Date:01/06/2017 01:00 PM Transportation at D/C:Wheelchair Van Discharge Delay Reason: Follow-Up Date:01/06/2017 01:00 PM Discharge Slot: Final Diagnosis:Right arm fracture, concussion Placement Information Referral Type:*Home Health Care Services Referral ID:[id number] Provider Name: Address 1: Phone Number: Address 2: Fax Number: City: Selection Factors: State: Referral Type:*Long-Term/SNF Referral ID:[id number] Provider Name:[facility] Address 1:[address] Address 2: City:[place] Selection Factors: State:[place] Referral Type:*Long-Term/SNF Referral ID:[id number] Provider Name: Address 1: Phone Number: Address 2: Fax Number: City: Selection Factors: State: Patient Contact Information Contact Name:CLAUS Relationship:Son Address: Work Phone: City: [facility] Phone: State/Zip Code: Email: Financial Information Financial Class:Medicare Advantage Plans Primary Plan Desc:[employer] Primary Plan Number:[id number] Secondary Plan Desc: Secondary Plan Number: Assessment Information [facility] CM Progress Note CM Note CM Note Notes: Pt having surgery today for R arm fracture w Dr. Coleman; PT/OT to eval after. Pt has son who lives locally. [phone] Date Signed: 01/02/2017 02:37 PM Electronically Signed By:DAMARIS Hugo [facility] CM Progress Note CM Note CM Note Notes: Spoke to pt adela Rodríguez [phone], informed him pt accepted at [facility], [facility] and [facility], he is not ready to select SNF yet. Reps from each facility called him to discuss ins coverage. Pt likely d/c tomorrow. Date Signed: 01/05/2017 04:05 PM Electronically Signed By:DAMARIS Hugo [facility] CM Progress Note CM Note CM Note Notes: Copy of note from 01/06/17 when pt d/c which was not locked: Patient discharging to [facility] by [facility] transport at 12:30 Sunday. Spoke with adela Rodríguez who is in agreement with the plan. All final orders sent. Date Signed: 01/08/2017 02:08 PM Electronically Signed By:DAMARIS Hugo Intervention Information
--- NOTE | 2017-01-08 14:09 | ASMTCMCOM ---
CM Note CM Note Notes: Copy of note from 01/06/17 when pt d/c which was not locked: Patient discharging to [facility] by [place] transport at 12:30 Sunday. Spoke with son Marcos who is in agreement with the plan. All final orders sent. Date Signed: 01/08/2017 02:08 PM Electronically Signed By:DAMARIS Hugo
== END 2017-01-06 12:50 | DRG 492 ==
LOC: EDUNIT# → F3N 21:49
PROVIDERS: ADMIT Internal Medicine; ATTEND Internal Medicine
PROC: 0HQ1XZZ Repair Face Skin, External Approach (ICD-10-PCS; 2017-01-01)
PROC: 0PSC04Z Reposition Right Humeral Head with Internal Fixation Device, Open Approach (ICD-10-PCS; principal; 2017-01-02 14:00)
DX: S42.231A 3-part fracture of surgical neck of right humerus, initial encounter for closed fracture (principal); G93.49 Other encephalopathy; S06.0X0A Concussion without loss of consciousness, initial encounter; S01.81XA Laceration without foreign body of other part of head, initial encounter; I10 Essential (primary) hypertension; J45.909 Unspecified asthma, uncomplicated; E78.00 Pure hypercholesterolemia, unspecified; W01.0XXA Fall on same level from slipping, tripping and stumbling without subsequent striking against object, initial encounter; Y92.129 Unspecified place in nursing home as the place of occurrence of the external cause; Z87.891 Personal history of nicotine dependence
CPT/HCPCS: 82607-90; 92507-GN; 92523-GN; 96374; 97162-GP; 97166-GO; 97530-GO; 97530-GP; 97532-GO; 97535-GO; A4565; C1713; C1769; G8978-GP-CL; G8979-GP-CJ; G8987-GO-CM; G8988-GO-CJ; G9168-GN-CL; G9169-GN-CJ; J0171; J0360; J0690; J1650; J2704; J3010